=== PATIENT | male | born 1970 | race Caucasian/White ===

== ENCOUNTER 2016-10-10 20:17 | Emergency (ER) | payer OTHER ==
[~2016-10-10] VITALS: Ht 180.3 cm; Wt 146.0 kg
[2016-10-10 20:19] VITALS: BP 163/113; PULSE 70; RESP 20; TEMP 98; O2SAT 98
[2016-10-10] MEDS ORDERED: SODIUM CHLORIDE 0.9% FLUSH 10 ML FLUSH IVF PRN (20:30)
[2016-10-10] MEDS ORDERED: KETOROLAC TROMETHAMINE 30 MG/ML (IVP) VIAL IVP ONE (20:30)
[2016-10-10] MEDS ORDERED: HYDROmorphone HCL PF 1 MG/ML VIAL IVS ONE (20:30)
[2016-10-10] MEDS ORDERED: ONDANSETRON HCL 4 MG/2 ML VIAL IVP ONE (20:30)
[2016-10-10] MEDS ORDERED: SODIUM CHLOR 0.9% 1000 ML INJ 1,000 ML IV ONE ×2 (20:30→21:30)
--- NOTE | 2016-10-10 20:36 | PD ---
HPI . Right flank pain Chief Complaint: Flank/Kidney Pain Time Seen by Provider: 20:28 Travel History International Travel<30 days: No Contact w/Intl Traveler<30days: No Traveled to known affect area: No History of Present Illness HPI Patient presents with chief complaint of right flank pain. Onset was about 2 days ago. Symptoms have become acutely worse today. Pain is associated with nausea. He also reports poor appetite today. He denies any urinary tract symptoms such as dysuria, frequency, urgency he has not been running a fever. The pain has no exacerbating or relieving factors. Pain is currently rated 8/ 10. Patient reports previous cholecystectomy. [facility] Past Medical History Diabetes: Yes Social History Tobacco Use: No Allergies-Medications (Allergen,Severity, Reaction): Coded Allergies: Cipro (Verified Allergy, Unknown, " DEATHLY ILL ", 10/10/16) Reported Meds & Prescriptions Reported Meds & Active Scripts Active Reported Paroxetine (Paroxetine HCl) 30 Mg Tab 30 Mg PO DAILY Topamax (Topiramate) 100 Mg Tab 100 Mg PO BID Metformin (Metformin HCl) 500 Mg Tab 500 Mg PO DAILY With a meal Losartan (Losartan Potassium) 50 Mg Tab 50 Mg PO DAILY Amlodipine (Amlodipine Besylate) 10 Mg Tab 10 Mg PO DAILY Pravastatin 80 Mg Tab 80 Mg PO DAILY Modafinil 200 Mg Tab 200 Mg PO DAILY Loperamide (Loperamide HCl) 2 Mg Cap 2 Mg PO DIRECTED PRN One capsule after each loose stool. Not to exceed 8 capsules per day. Protonix (Pantoprazole Sodium) 40 Mg Tab 40 Mg PO DAILY Review of Systems Except as stated in HPI: all other systems reviewed are Neg General / Constitutional: No: Fever, Chills Gastrointestinal: Positive: Nausea, Abdominal Pain, No: Vomiting, Diarrhea Genitourinary: Positive: Flank Pain, No: Urgency, Frequency, Dysuria, Hematuria Physical Exam Narrative GENERAL: Obese man who appears to be in some distress related pain. SKIN: Warm and dry. HEAD: Atraumatic. Normocephalic. EYES: Pupils equal and round. Extraocular movements are intact. ENT: No nasal bleeding or discharge. Mucous membranes pink and moist. NECK: Trachea midline. Neck is supple. CARDIOVASCULAR: Regular rate and rhythm. RESPIRATORY: No accessory muscle use. GASTROINTESTINAL: Abdomen soft. Positive right upper quadrant tenderness. Nondistended. Positive right CVA tenderness. The CVA tenderness seems to be more pronounced than the right upper quadrant tenderness. MUSCULOSKELETAL: No obvious deformities. No edema. NEUROLOGICAL: Awake and alert. No obvious cranial nerve deficits. Motor grossly within normal limits. Normal speech. PSYCHIATRIC: Appropriate mood and affect; insight and judgment normal. Data Data Last Documented VS Vital Signs Date Time Temp Pulse Resp B/P Pulse Ox O2 Delivery O2 Flow Rate FiO2 10/10/16 21:09 81 18 160/71 100 Room Air 10/10/16 20:19 98.0 Orders Complete Blood Count With Diff (10/10/16 20:28) Comprehensive Metabolic Panel (10/10/16 20:28) Urinalysis - C+S If Indicated (10/10/16 20:28) Iv Access Insert/Monitor (10/10/16 20:28) Ketorolac Inj (Toradol Inj) (10/10/16 20:30) Ondansetron Inj (Zofran Inj) (10/10/16 20:30) Sodium Chloride 0.9% Flush (Ns Flush) (10/10/16 20:30) Hydromorphone Pf Inj (Dilaudid Pf Inj) (10/10/16 20:30) Sodium Chlor 0.9% 1000 Ml Inj (Ns 1000 M (10/10/16 20:30) Ct Abd/Pel W Iv Contrast(Rout) (10/10/16 20:28) Sodium Chlor 0.9% 1000 Ml Inj (Ns 1000 M (10/10/16 21:30) Iohexol 350 Inj (Omnipaque 350 Inj) (10/10/16 21:53) Labs Laboratory Tests Test 10/10/16 10/10/16 20:30 21:50 White Blood Count 12.0 TH/MM3 Red Blood Count 5.46 MIL/MM3 Hemoglobin 15.9 GM/DL Hematocrit 48.2 % Mean Corpuscular Volume 88.3 FL Mean Corpuscular Hemoglobin 29.0 PG Mean Corpuscular Hemoglobin 32.9 % Concent Red Cell Distribution Width 13.9 % Platelet Count 250 TH/MM3 Mean Platelet Volume 9.4 FL Neutrophils (%) (Auto) 70.7 % Lymphocytes (%) (Auto) 20.6 % Monocytes (%) (Auto) 6.8 % Eosinophils (%) (Auto) 0.6 % Basophils (%) (Auto) 1.3 % Neutrophils # (Auto) 8.4 TH/MM3 Lymphocytes # (Auto) 2.5 TH/MM3 Monocytes # (Auto) 0.8 TH/MM3 Eosinophils # (Auto) 0.1 TH/MM3 Basophils # (Auto) 0.2 TH/MM3 CBC Comment DIFF FINAL Differential Comment Sodium Level 140 MEQ/L Potassium Level 3.9 MEQ/L Chloride Level 105 MEQ/L Carbon Dioxide Level 26.9 MEQ/L Anion Gap 8 MEQ/L Blood Urea Nitrogen 11 MG/DL Creatinine 0.92 MG/DL Estimat Glomerular Filtration 88 ML/MIN Rate Random Glucose 121 MG/DL Calcium Level 9.1 MG/DL Total Bilirubin 1.0 MG/DL Aspartate Amino Transf 25 U/L (AST/SGOT) Alanine Aminotransferase 32 U/L (ALT/SGPT) Alkaline Phosphatase 112 U/L Total Protein 7.8 GM/DL Albumin 3.7 GM/DL Urine Color ANASTACIO Urine Turbidity CLEAR Urine pH 5.5 Urine Specific [place] GREATER THAN 1.035 Urine Protein NEG mg/dL Urine Glucose (UA) NEG mg/dL Urine Ketones NEG mg/dL Urine Occult Blood NEG Urine Nitrite NEG Urine Bilirubin NEG Urine Leukocyte Esterase NEG Urine WBC 3-5 /hpf Urine Squamous Epithelial 0-5 /hpf Cells Urine Calcium Oxalate Crystals FEW /hpf Urine Uric Acid Crystals /hpf Urine Mucus MANY /lpf Microscopic Urinalysis Comment CULT NOT INDICATED MDM Medical Decision Making Medical Screen Exam Complete: Yes Emergency Medical Condition: Yes Differential Diagnosis Differential diagnosis of flank pain includes but is not limited to kidney stone , pyelonephritis, musculoskeletal pain, PE Narrative Course Patient presents with the chief complaint of right flank pain. He also has some tenderness in the right upper quadrant. He has had a previous cholecystectomy. The patient is now reporting marked improvement in his pain. CBC & BMP Diagram 10/10/16 20:30 UA is negative for infection. CT of the abdomen and pelvis shows no acute pathology. The history, exam, diagnostic testing, and current condition do not suggest any significant pathology to warrant further testing, continued ED treatment, admission, or surgical evaluation at this point. The patient's condition is stable and appropriate for discharge. Diagnosis Primary Impression: Flank pain Patient Instructions: Flank Pain (ED), General Instructions Med/Other Pt SpecificInfo: Prescription(s) given Scripts Cyclobenzaprine (Flexeril)10 Mg Tab10 Mg PO TID #30 TAB Ref 0 Prov:Dianelys Bethea MD 10/10/16 Tramadol (Ultram)50 Mg Tab50 Mg PO Q4H PRN (PAIN) #12 TAB Ref 0 Prov:Dianelys Bethea MD 10/10/16 Ibuprofen 800 Mg [id number] Mg PO Q8H PRN (Pain/Inflammation) #60 TAB Ref 0 Prov:Dianelys Bethea MD 10/10/16 Disposition: 01 DISCHARGE HOME Condition: Stable Dianelys Bethea MD Oct 10, 2016 20:36
[2016-10-10 20:46] LABS: AUTOMATED NEUTROPHIL # 8.4 TH/MM3 (1.8-7.7); BASOPHIL # 0.2 TH/MM3 (0-0.2); BASOPHIL % 1.3 % (0.0-2.0); EOSINOPHIL # 0.1 TH/MM3 (0-0.4); EOSINOPHIL % 0.6 % (0.0-4.0); HEMATOCRIT 48.2 % (39.0-51.0); HEMO FLAGS DIFF FINAL; LYMPH % 20.6 % (9.0-44.0); LYMPHOCYTE # 2.5 TH/MM3 (1.0-4.8); MEAN CELL VOLUME 88.3 FL (80.0-100.0); MEAN CORPUSCULAR HGB CONC 32.9 % (32.0-36.0); MONO % 6.8 % (0.0-8.0); NEUT % 70.7 % (16.0-70.0); PLATELET COUNT 250 TH/MM3 (150-450); RED BLOOD COUNT 5.46 MIL/MM3 (4.50-5.90); RED CELL DISTRIBUTION WIDTH 13.9 % (11.6-17.2)
[2016-10-10] MEDS ORDERED: PROT40TA PO (20:49)
[2016-10-10] MEDS ORDERED: LOPE2CAP PO (20:52)
[2016-10-10] MEDS ORDERED: MODA200T12 PO (20:54)
[2016-10-10] MEDS ORDERED: METF500T PO (20:54)
[2016-10-10] MEDS ORDERED: PARO30TA2 PO (20:54)
[2016-10-10] MEDS ORDERED: TOPA100T11 PO (20:54)
[2016-10-10] MEDS ORDERED: PRAV80TA2 PO (20:54)
[2016-10-10] MEDS ORDERED: AMLO10TA2 PO (20:54)
[2016-10-10] MEDS ORDERED: LOSA50TA PO (20:54)
[2016-10-10 21:01] LABS: CHLORIDE 105 MEQ/L (98-107); POTASSIUM 3.9 MEQ/L (3.5-5.1); SODIUM (NA) 140 MEQ/L (136-145)
[2016-10-10 21:04] LABS: ANION GAP 8 MEQ/L (5-15); BICARBONATE 26.9 MEQ/L (21.0-32.0); BLOOD UREA NITROGEN 11 MG/DL (7-18)
[2016-10-10 21:07] LABS: ALT (GPT) 32 U/L (12-78); AST (GOT) 25 U/L (15-37); GLOMERULAR FILTRATION RATE 88 ML/MIN (>89)
[2016-10-10 21:09] VITALS: BP 160/71; PULSE 81; RESP 18; O2SAT 100
[2016-10-10 21:10] LABS: ALKALINE PHOSPHATASE 112 U/L (45-117)
[2016-10-10] MEDS ORDERED: IOHEXOL 350 MG/ML 10 ML VIAL (for RAD DIAG) IV ONE (21:53)
[2016-10-10 22:00] LABS: BLOOD, URINE NEG (NEG); GLUCOSE,URINE NEG (NEG); KETONE, URINE NEG (NEG); NITRITE,URINE NEG (NEG); PH, URINE 5.5 (5.0-8.5)
--- NOTE | 2016-10-10 22:03 | RADRPT ---
EXAM DATE/TIME: 10/10/2016 21:30 [facility] COMPARISON: No previous studies available for comparison. INDICATIONS : Nausea, vomiting, right flank pain. IV CONTRAST: 95 cc Omnipaque 350 (iohexol) IV ORAL CONTRAST: No oral contrast ingested. RADIATION DOSE: 29.13 CTDIvol (mGy) ; Patient body habitus MEDICAL HISTORY : Diverticulosis. SURGICAL HISTORY : Pacemaker. LAP Band ENCOUNTER: Initial ACUITY: 2 days PAIN SCALE: 10/10 LOCATION: Right flank TECHNIQUE: Volumetric scanning of the abdomen and pelvis was performed. Using automated exposure control and ad justment of the mA and/or kV according to patient size, radiation dose was kept as low as reasonably achievable to obtain optimal diagnostic quality images. DICOM format image data is available electro nically for review and comparison. FINDINGS: CT Abdomen: The liver, spleen, pancreas, adrenals are unremarkable. There is no evidence for any appr eciable pathological adenopathy, free fluid, or bowel obstruction. Gastric banding is identified at the level of the gastroesophageal junction and cardial portion of the stomach. There are multiple sim ple cysts in the kidneys the largest on the right measures 2.[address] pelvis: There is no evidence for mass, abscess formation, or any significant adenopathy within the pelvis. The prostate gland is inhomogeneous and measures 3.4 x 4.5 cm in AP and transverse diameters and nonspecific. There are scattered diverticuli mainly in the sigmoid colon without definite signs of diverticulitis. CONCLUSION: Colonic diverticuli as simple renal cysts. Kely Strickland MD on October 10, 2016 at 21:57 Board Certified Radiologist. This report was verified electronically.
[2016-10-10 22:09] LABS: MUCUS URINE MANY /lpf (OCC); URINE COLOR AMBER (YELLW/STRAW)
[2016-10-10 22:10] LABS: SQUAMOUS EPITHELIAL CELL URINE 0-5 /hpf (0-5)
[2016-10-10 22:12] LABS: CALCIUM OXALATE CRYSTALS,URINE FEW /hpf
[2016-10-10 22:13] LABS: COMMENT (UR) CULT NOT INDICATED; CULTURE IF INDICATED CULT NOT INDICATED
[2016-10-10] MEDS ORDERED: CYCL1TAB29 PO (22:23)
[2016-10-10] MEDS ORDERED: IBUP800T23 PO (22:23)
[2016-10-10] MEDS ORDERED: ULTR50TA5 PO (22:23)
== END 2016-10-10 22:42 | disposition home or self-care (01) ==
LOC: PHED 20:17
DX: R10.9 Unspecified abdominal pain (principal)
CPT/HCPCS: 74177; 80053; 81001; 85025; 96361; 96374; 96375; 99285; J1170; J1885; J2405; J7030; Q9967

== ENCOUNTER 2016-10-12 10:51 | Emergency (ER) | payer OTHER ==
[~2016-10-12 10:51] MED LIST: AMLO10TA2 PO; CYCL1TAB29 PO; IBUP800T23 PO; LOPE2CAP PO; LOSA50TA PO; METF500T PO; MODA200T12 PO; PARO30TA2 PO; PRAV80TA2 PO; PROT40TA PO; TOPA100T11 PO; ULTR50TA5 PO
[2016-10-12 10:55] VITALS: BP 176/120; PULSE 71; RESP 20; TEMP 98; O2SAT 96
[2016-10-12] MEDS ORDERED: ZOFR4TAB3 SL (11:11)
--- NOTE | 2016-10-12 11:44 | PD ---
HPI Chief Complaint: GI Complaint Time Seen by Provider: 11:23 Travel History International Travel<30 days: No Contact w/Intl Traveler<30days: No Traveled to known affect area: No History of Present Illness HPI This 46-year-old male is complaining of abdominal pain. This gentleman is having pain which is greatest in the epigastric and left upper quadrant for a couple of days. It has been fairly constant. He is quite severe at times. The patient has a lap band in place. He lives in [place] and is here visiting his father. He has had the lap band for a few years. About a month ago he had fluid put in a lap band. He says that since then he has not really been feeling all that well. He was a on Wednesday with complaint of flank pain. At that time his urine was negative and a CT scan was done which did not show any kidney stones. He has had a cholecystectomy in the past. He has had the lap band since 2014. He has had a cardiac pacemaker since 2005. He does not drink. He had a bleeding ulcer last December and is on Protonix. Said he has not been able to eat the last day or so. He has a history of hypertension. He has a cardiac pacemaker. He is on metformin PFSH Past Medical History Depression: Yes (PTSD) Cardiac Catheterization: Yes (NO STENTS) Chest Pain: Yes Cerebrovascular Accident: Yes (TIA X2) Diabetes: Yes Patient Takes Glucophage: Yes Gastrointestinal Disorders: Yes (EGD: 2012 FOR "BLEEDING ULCER", LAP BAND:2014) GERD: Yes Genitourinary: Yes ("CYST ON RIGHT KIDNEY") Hiatal Hernia: Yes Hypertension: Yes Psychiatric: Yes (PTSD) Pneumonia: Yes Seizures: Yes (WITH TIA'S) Sleep Apnea: Yes (WEARS BIPAP AT HOME) Ulcer: Yes (BLEEDING GASTRIC ULCER) Past Surgical History Cholecystectomy: Yes Pacemaker: Yes (2005 FOR BRADYCARDIA) Other Surgery: Yes (VASECTOMY) Social History Alcohol Use: Yes Tobacco Use: No Substance Use: No Allergies-Medications (Allergen,Severity, Reaction): Coded Allergies: Cipro (Verified Allergy, Unknown, " DEATHLY ILL ", 10/12/16) Reported Meds & Prescriptions Reported Meds & Active Scripts Active Flexeril (Cyclobenzaprine HCl) 10 Mg Tab 10 Mg PO TID Ultram (Tramadol HCl) 50 Mg Tab 50 Mg PO Q4H PRN Ibuprofen 800 Mg Tab 800 Mg PO Q8H PRN Reported Zofran Odt (Ondansetron Odt) 4 Mg Tab 4 Mg SL Q6HR PRN Paroxetine (Paroxetine HCl) 30 Mg Tab 30 Mg PO DAILY Topamax (Topiramate) 100 Mg Tab 100 Mg PO BID Metformin (Metformin HCl) 500 Mg Tab 500 Mg PO DAILY With a meal Losartan (Losartan Potassium) 50 Mg Tab 50 Mg PO DAILY Amlodipine (Amlodipine Besylate) 10 Mg Tab 10 Mg PO DAILY Pravastatin 80 Mg Tab 80 Mg PO DAILY Modafinil 200 Mg Tab 200 Mg PO DAILY Loperamide (Loperamide HCl) 2 Mg Cap 2 Mg PO DIRECTED PRN One capsule after each loose stool. Not to exceed 8 capsules per day. Protonix (Pantoprazole Sodium) 40 Mg Tab 40 Mg PO DAILY Review of Systems General / Constitutional: No: Fever Eyes: No: Diploplia, Blurred Vision HENT: No: Headaches Cardiovascular: No: Chest Pain or Discomfort, Palpitations Respiratory: No: Cough, Shortness of Breath Gastrointestinal: Positive: Vomiting, Diarrhea Genitourinary: Positive: Frequency, No: Urgency Musculoskeletal: No: Myalgias, Arthralgias Skin: No Rash, No Itching Neurologic: No: Weakness, Dizziness Psychiatric: No: Anxiety Hematologic/Lymphatic: No: Easy Bruising Physical Exam Narrative GENERAL: Obese male SKIN: Focused skin assessment warm/dry. HEAD: Atraumatic. Normocephalic. EYES: Pupils equal and round. No scleral icterus. No injection or drainage. ENT: No nasal bleeding or discharge. Mucous membranes pink and moist. NECK: Trachea midline. No JVD. CARDIOVASCULAR: Regular rate and rhythm. No murmur appreciated. RESPIRATORY: No accessory muscle use. Clear to auscultation. Breath sounds equal bilaterally. GASTROINTESTINAL: Abdomen soft, there is left upper quadrant and epigastric tenderness, nondistended. Hepatic and splenic margins not palpable. MUSCULOSKELETAL: No obvious deformities. No clubbing. No cyanosis. No edema. NEUROLOGICAL: Awake and alert. No obvious cranial nerve deficits. Motor grossly within normal limits. Normal speech. PSYCHIATRIC: Appropriate mood and affect; insight and judgment normal. Data Data Last Documented VS Vital Signs Date Time Temp Pulse Resp B/P Pulse Ox O2 Delivery O2 Flow Rate FiO2 10/12/16 12:35 72 16 148/78 93 Room Air 10/12/16 10:55 98.0 Orders Complete Blood Count With Diff (10/12/16 11:31) Comprehensive Metabolic Panel (10/12/16 11:31) Lipase (10/12/16 11:31) Urinalysis - C+S If Indicated (10/12/16 11:31) Ct Abd/Pel W Iv Contrast(Rout) (10/12/16 11:31) Sodium Chlor 0.9% 1000 Ml Inj (Ns 1000 M (10/12/16 11:45) Ondansetron Inj (Zofran Inj) (10/12/16 11:45) Hydromorphone Pf Inj (Dilaudid Pf Inj) (10/12/16 11:45) Oral Contrast - Adult (10/12/16 ) Diatrizoate Liq ( Gastroview Liq) (10/12/16 12:00) Sodium Chlor 0.9% 1000 Ml Inj (Ns 1000 M (10/12/16 12:30) Iohexol 350 Inj (Omnipaque 350 Inj) (10/12/16 13:00) Labs Laboratory Tests Test 10/12/16 10/12/16 11:45 11:55 White Blood Count 10.6 TH/MM3 Red Blood Count 5.22 MIL/MM3 Hemoglobin 15.8 GM/DL Hematocrit 45.4 % Mean Corpuscular Volume 87.0 FL Mean Corpuscular Hemoglobin 30.3 PG Mean Corpuscular Hemoglobin 34.8 % Concent Red Cell Distribution Width 13.0 % Platelet Count 232 TH/MM3 Mean Platelet Volume 8.9 FL Neutrophils (%) (Auto) 80.5 % Lymphocytes (%) (Auto) 13.6 % Monocytes (%) (Auto) 5.4 % Eosinophils (%) (Auto) 0.2 % Basophils (%) (Auto) 0.3 % Neutrophils # (Auto) 8.6 TH/MM3 Lymphocytes # (Auto) 1.4 TH/MM3 Monocytes # (Auto) 0.6 TH/MM3 Eosinophils # (Auto) 0.0 TH/MM3 Basophils # (Auto) 0.0 TH/MM3 CBC Comment DIFF FINAL Differential Comment Sodium Level 137 MEQ/L Potassium Level 3.5 MEQ/L Chloride Level 101 MEQ/L Carbon Dioxide Level 24.6 MEQ/L Anion Gap 11 MEQ/L Blood Urea Nitrogen 8 MG/DL Creatinine 0.92 MG/DL Estimat Glomerular Filtration 88 ML/MIN Rate Random Glucose 135 MG/DL Calcium Level 8.8 MG/DL Total Bilirubin 1.0 MG/DL Aspartate Amino Transf 23 U/L (AST/SGOT) Alanine Aminotransferase 32 U/L (ALT/SGPT) Alkaline Phosphatase 110 U/L Total Protein 8.3 GM/DL Albumin 3.7 GM/DL Lipase 140 U/L Urine Collection Type VOIDED Urine Color YELLOW Urine Turbidity CLEAR Urine pH 6.0 Urine Specific [place] 1.009 Urine Protein NEG mg/dL Urine Glucose (UA) NEG mg/dL Urine Ketones TRACE mg/dL Urine Occult Blood NEG Urine Nitrite NEG Urine Bilirubin NEG Urine Leukocyte Esterase NEG Urine WBC 0-2 /hpf Urine Squamous Epithelial 0-3 /hpf Cells Microscopic Urinalysis Comment CULT NOT INDICATED MDM Medical Decision Making Medical Screen Exam Complete: Yes Emergency Medical Condition: Yes Medical Record Reviewed: Yes Differential Diagnosis Differential includes ulcer disease, lap band complication, pancreatitis Narrative Course Hemoglobin is 15.8. White count is 10,000. Lipase is 140. CT of the abdomen and pelvis was obtained. There is no free air or evidence of obstruction. Patient thinks his problems may be related to the increased fluid in his lap band. Other etiology has not been found. I have contacted [facility] bariatrics and they have agreed to see the patient in their clinic this afternoon. Patient will go there with his . He was given IV fluids here and one dose of Dilaudid which did provide some relief pain Diagnosis Primary Impression: Abdominal pain Qualified Code: R10.13 - Epigastric pain Additional Impression: Hx of laparoscopic gastric banding Departure Forms: Tests/Procedures Additional Instructions: To [facility] bariatrics in the [address] at [facility] now Disposition: 01 DISCHARGE HOME Condition: Stable Sulaiman Camejo MD Oct 12, 2016 11:44
[2016-10-12] MEDS ORDERED: ONDANSETRON HCL 4 MG/2 ML VIAL IV PUSH ONE (11:45)
[2016-10-12] MEDS ORDERED: SODIUM CHLOR 0.9% 1000 ML INJ 1,000 ML IV ONE ×2 (11:45→12:30)
[2016-10-12] MEDS ORDERED: HYDROmorphone HCL PF 1 MG/ML VIAL IV PUSH ONE (11:45)
[2016-10-12 11:54] LABS: AUTOMATED NEUTROPHIL # 8.6 TH/MM3 (1.8-7.7); BASOPHIL % 0.3 % (0.0-2.0); EOSINOPHIL % 0.2 % (0.0-4.0); HEMATOCRIT 45.4 % (39.0-51.0); LYMPH % 13.6 % (9.0-44.0); LYMPHOCYTE # 1.4 TH/MM3 (1.0-4.8); MEAN CORPUSCULAR HEMOGLOBIN 30.3 PG (27.0-34.0); MEAN CORPUSCULAR HGB CONC 34.8 % (32.0-36.0); MONO % 5.4 % (0.0-8.0); NEUT % 80.5 % (16.0-70.0); PLATELET COUNT 232 TH/MM3 (150-450); RED BLOOD COUNT 5.22 MIL/MM3 (4.50-5.90); WHITE BLOOD COUNT 10.6 TH/MM3 (4.0-11.0)
[2016-10-12 11:55] LABS: HEMO FLAGS DIFF FINAL
[2016-10-12] MEDS ORDERED: DIATRIZOATE MEGLUM/DIATRIZOATE SOD 9 ML CUP ONE (12:00)
[2016-10-12 12:01] LABS: CHLORIDE 101 MEQ/L (98-107); POTASSIUM 3.5 MEQ/L (3.5-5.1); SODIUM (NA) 137 MEQ/L (136-145)
[2016-10-12 12:05] LABS: ANION GAP 11 MEQ/L (5-15); BICARBONATE 24.6 MEQ/L (21.0-32.0); BLOOD UREA NITROGEN 8 MG/DL (7-18)
[2016-10-12 12:08] LABS: ALT (GPT) 32 U/L (12-78); AST (GOT) 23 U/L (15-37); GLOMERULAR FILTRATION RATE 88 ML/MIN (>89)
[2016-10-12 12:10] LABS: ALKALINE PHOSPHATASE 110 U/L (45-117)
[2016-10-12 12:14] LABS: BLOOD, URINE NEG (NEG); GLUCOSE,URINE NEG (NEG); KETONE, URINE TRACE mg/dL (NEG); NITRITE,URINE NEG (NEG)
[2016-10-12 12:35] VITALS: BP 148/78; PULSE 72; RESP 16; O2SAT 93
[2016-10-12 12:39] LABS: COMMENT (UR) CULT NOT INDICATED; CULTURE IF INDICATED CULT NOT INDICATED; METHOD OF COLLECTION VOIDED; SQUAMOUS EPITHELIAL CELL URINE 0-3 /hpf (0-5); URINE COLOR YELLOW (YELLW/STRAW); WBC, URINE 0-2 /hpf (0-5)
[2016-10-12] MEDS ORDERED: IOHEXOL 350 MG/ML 10 ML VIAL (for RAD DIAG) IV ONE (13:00)
--- NOTE | 2016-10-12 13:14 | RADRPT ---
EXAM DATE/TIME: 10/12/2016 12:48 [facility] COMPARISON: CT ABDOMEN & PELVIS W CONTRAST, October 10, 2016, 21:30. INDICATIONS : Epigastric pain with nausea and vomiting. IV CONTRAST: 95 cc Omnipaque 350 (iohexol) IV ORAL CONTRAST: Prescribed oral contrast ingested. RADIATION DOSE: 29.09 CTDIvol (mGy) ; Patient body habitus MEDICAL HISTORY : Cerebrovascular disease. Cardiovascular disease Hernia, hiatal.Hypertension. Diabetes. SURGICAL HISTORY : Pacemaker. Cholecystectomy.Lap band. ENCOUNTER: Initial ACUITY: 3 days PAIN SCALE: 4/10 LOCATION: Left upper quadrant TECHNIQUE: Volumetric scanning of the abdomen and pelvis was performed. Using automated exposure control and ad justment of the mA and/or kV according to patient size, radiation dose was kept as low as reasonably achievable to obtain optimal diagnostic quality images. DICOM format image data is available electro nically for review and comparison. FINDINGS: LOWER LUNGS: The visualized lower lungs are clear. LIVER: Decreased attenuation without lesion. There is no dilation of the biliary tree. Cholecystectomy. SPLEEN: Normal size without lesion. PANCREAS: Within normal limits. KIDNEYS: Normal in size and shape. There is no mass, stone or hydronephrosis on the left. Punctate nonobstruc ting right renal calculus measures 2 mm. Bilateral renal low densities again seen. ADRENAL GLANDS: Within normal limits. VASCULAR: There is no aortic aneurysm. BOWEL/MESENTERY: Lap band procedure. Small lymph nodes in the gastrohepatic ligament.. There is no free intraperitone al air or fluid. Diverticulosis without diverticulitis. Mildly prominent small bowel loops left midab domen. No obstruction. Normal appendix. ABDOMINAL WALL: Within normal limits. RETROPERITONEUM: There is no lymphadenopathy. BLADDER: No wall thickening or mass. REPRODUCTIVE: Within normal limits. INGUINAL: There is no lymphadenopathy or hernia. MUSCULOSKELETAL: Within normal limits for patient age. CONCLUSION: 1. Mildly prominent small bowel loops in left mid abdomen without obstruction. 2. Diverticulosis without diverticulitis. 3. Punctate nonobstructing right renal calculus. 4. Hepatic steatosis. 5. Small lymph node in the gastrohepatic ligament likely benign. Jj Barragan MD on October 12, 2016 at 13:07 Board Certified Radiologist. This report was verified electronically.
[2016-10-12 13:50] VITALS: BP 167/86; PULSE 72; RESP 16; O2SAT 99
== END 2016-10-12 14:05 | disposition home or self-care (01) ==
LOC: PHED 10:51
DX: R10.13 Epigastric pain (principal); R11.2 Nausea with vomiting, unspecified; I10 Essential (primary) hypertension; E11.9 Type 2 diabetes mellitus without complications; K21.9 Gastro-esophageal reflux disease without esophagitis; Z98.84 Bariatric surgery status; Z86.73 Personal history of transient ischemic attack (TIA), and cerebral infarction without residual deficits; F43.10 Post-traumatic stress disorder, unspecified; G47.30 Sleep apnea, unspecified; Z95.0 Presence of cardiac pacemaker
CPT/HCPCS: 74177; 80053; 81001; 83690; 85025; 96361; 96374; 96375; 99285; J1170; J2405; J7030; Q9963; Q9967